=== PATIENT | female | born 1970 | race Caucasian/White ===

== ENCOUNTER 2016-06-23 16:58 | Observation (INO) | payer OTHER ==
[~2016-06-23] VITALS: Ht 160 cm; Wt 74.7 kg
[~2016-06-23 16:58] MED LIST: ABILIFY; ABILIFY10 MG PO; ALDACTONE100 MG PO; APRI1 EACH PO; ATORVASTATIN CA80 MG PO; BACTRIM,SEPT1 TABLET PO; BENTYL20 MG PO; BENZTROPINE ME0.5 MG PO; BENZTROPINE MESY1 MG PO; BUSPAR10 MG PO; BUSPAR15 MG PO; Bentyl PO; Buspar PO; CELEXA10 MG PO; CLONAZEPAM0.5 MG PO; Cogentin PO; EFFEXOR XR150 MG PO; EFFEXOR75 MG PO; Effexor XR PO; FENOFIBRIC ACI135 MG PO; FOLIC ACID1 MG PO; Folvite PO; GABAPENTIN800 MG PO; Habitrol,Nicoderm CQ TD; K-DUR20 MEQ PO; KEPPRA500 MG PO; LITHIUM CARBON300 MG PO; LOMOTIL TABLET1 EACH PO; LORAZEPAM1 MG PO; LUNESTA3 MG PO; Levaquin PO; Lipitor PO; NEURONTIN800 MG PO; NICOTINE PATCH1 EAC2 TD; NYQUIL D COLD295 ML PO; PERPHENAZINE16 MG PO; PERPHENAZINE8 MG PO; PROMETHAZINE HC25 M1 PO; Proventil,Ventolin H IH; RESTORIL30 MG PO; RISPERIDONE1 MG PO; RISPERIDONE3 MG PO; SAPHRIS10 MG SL; SPIRONOLACTONE100 MG PO; TRILAFON8 MG PO; Tamiflu PO; Tricor PO; Trilafon PO; UNISOM50 MG PO; VENLAFAXINE HC150 M1 PO; VENLAFAXINE225 MG PO; ZYPREXA2.5 MG PO; celeXA PO; predniSONE PO
[2016-06-23 17:26] LABS: HEMATOCRIT 33.5 % (36.0-46.0); MCH 35.6 PG (29.0-34.0); MCHC 33.1 G/DL (30.0-36.0); MCV 107.4 FL (83-99); MEAN PLAT.VOLUME 8.4 uM^3 (9.5-12.4); PLATELET COUNT 581 K/uL (156-360); RBC DIS.WIDTH-CV 14.8 % (11.8-14.6); RBC DIS.WIDTH-SD 58.8 % (39-53); RED BLOOD COUNT 3.12 M/uL (3.80-5.20); WHITE BLOOD COUNT 19.2 K/uL (4.1-10.2)
[2016-06-23 17:36] LABS: CHLORIDE 100 mEq/L (99-109); SODIUM 133 mEq/L (136-147)
[2016-06-23 17:39] LABS: GLUCOSE 108 mg/dL (70-99)
[2016-06-23 17:40] LABS: ANION GAP 14 MEQ/L (2-14)
[2016-06-23 17:41] LABS: TOTAL BILIRUBIN 0.2 mg/dL (0.0-1.0)
[2016-06-23 17:42] LABS: ALKALINE PHOSPHATASE 80 IU/L (3-129); GFR ESTIMATE (CALCULATED) > 59 mL/min/
[2016-06-23 17:43] LABS: UREA NITROGEN (BUN) 5 mg/dL (9-23)
[2016-06-23 17:51] LABS: QUANTITATIVE HCG < 4.0 MIU/ML
[2016-06-23 18:14] LABS: ADD MIUA? YES; BILIRUBIN NEGATIVE; BLOOD NEGATIVE; COLOR STRAW ((YELLOW)); GLUCOSE (STRIP) NEGATIVE; KETONES 20; LEUKOCYTES NEGATIVE; NITRITE NEGATIVE; PROTEIN (STRIP) NEGATIVE; SPECIFIC GRAVITY 1.006 (1.000-1.030); UROBILINOGEN 0.2 MG/DL (0.2-1.0)
[2016-06-23 18:27] LABS: BACTERIA RARE /HPF; EPITHELIAL CELLS 1+ /HPF; MUCUS TRACE /LPF; RED BLOOD CELLS 0-5 /HPF (0-5); UCUL ADDED? NO; WHITE BLOOD CELLS 0-5 /HPF (0-5)
[2016-06-23 20:36] LABS: AMYLASE 54 IU/L (1-118)
[2016-06-23 20:44] LABS: DIRECT BILIRUBIN 0.1 mg/dL (0.0-0.3)
[2016-06-23 20:45] LABS: LIPASE 15 U/L (1.0-51.0)
[2016-06-23] MEDS ORDERED: IBUPROFEN800 MG PO (23:03)
[2016-06-24 00:20] VITALS: BP 116/70
[2016-06-24 00:23] VITALS: BP 116/70
[2016-06-24 04:30] VITALS: BP 128/66
[2016-06-24 07:09] LABS: HEMATOCRIT 30.8 % (36.0-46.0); MCH 35.6 PG (29.0-34.0); MCHC 32.5 G/DL (30.0-36.0); MCV 109.6 FL (83-99); MEAN PLAT.VOLUME 8.8 uM^3 (9.5-12.4); PLATELET COUNT 521 K/uL (156-360); RBC DIS.WIDTH-SD 60.7 % (39-53); RED BLOOD COUNT 2.81 M/uL (3.80-5.20)
[2016-06-24 07:11] LABS: AMYLASE 28 IU/L (1-118); LIPASE 14 U/L (1.0-51.0)
[2016-06-24 07:17] LABS: WHITE BLOOD COUNT 11.6 K/uL (4.1-10.2)
[2016-06-24 07:26] VITALS: BP 106/59
[2016-06-24 08:25] LABS: ANION GAP 12 MEQ/L (2-14); CHLORIDE 107 MEQ/L (99-109); GFR ESTIMATE (CALCULATED) > 59 mL/min/; GLUCOSE 109 mg/dL (70-99); POTASSIUM 3.5 MEQ/L (3.7-5.4); UREA NITROGEN (BUN) 3 mg/dL (9-23)
[2016-06-24 08:28] LABS: SODIUM 141 MEQ/L (136-147)
[2016-06-24 11:01] VITALS: BP 102/60
[2016-06-24 13:45] LABS: AMPHETAMINES QUANT VALUE 0 NG/ML; BARBITUATES QUANT VALUE 0 NG/ML; BENZODIAZEPINES QUANT VALUE 0 NG/ML; BENZODIAZEPINES, URINE SCREEN Negative (200 ng/mL); MARIJUANA QUANT VALUE 0 NG/ML; OPIATES QUANTITATIVE VALUE 0 NG/ML; PHENCYCLIDINE QUANT VALUE 0 NG/ML
[2016-06-24] MEDS ORDERED: PROTONIX40 MG PO (16:08)
== END 2016-06-24 18:43 | disposition home or self-care (01) ==
LOC: EME 16:58 → 5WEST 23:11 → EDOF 23:11 → 5WEST 06-24 00:06
PROVIDERS: Physician Assistant Medical
DX: K29.80 Duodenitis without bleeding (principal); E87.6 Hypokalemia; E87.1 Hypo-osmolality and hyponatremia; D64.9 Anemia, unspecified; D47.3 Essential (hemorrhagic) thrombocythemia; F20.9 Schizophrenia, unspecified; F17.200 Nicotine dependence, unspecified, uncomplicated
CPT/HCPCS: 74177; 76856; 80048; 80053; 80306 90; 81003; 82150; 82248; 83605; 83690; 84702; 85027; 87040; 99281; 99285; C9113; G0378; J0696; J2405; J3480; J7030; J7042; J7050

== ENCOUNTER 2016-07-06 16:15 | Inpatient (IN) | payer OTHER ==
[~2016-07-06] VITALS: Ht 160 cm; Wt 96.8 kg
[~2016-07-06 16:15] MED LIST changes: +IBUPROFEN800 MG PO; +PROTONIX40 MG PO
[2016-07-06 17:56] LABS: D-DIMER ELISA 1.06 mg/L FEU (< 0.57)
[2016-07-06 17:59] LABS: EOSINOPHIL (%) 0.5 % (0-5); EOSINOPHIL COUNT 0.1 K/uL (0-0.3); HEMATOCRIT 23.4 % (36.0-46.0); IMMATURE GRANULOCYTE (%) 1.6 % (0.0-0.7); IMMATURE GRANULOCYTE COUNT 0.2 K/uL; INSTRUMENT ABS NEUTROPHIL CT 10.5 K/uL; LYMPHOCYTE COUNT 0.9 K/uL (1.0-2.8); MCH 33.2 PG (29.0-34.0); MCHC 30.3 G/DL (30.0-36.0); MCV 109.3 FL (83-99); MONOCYTE (%) 7.7 % (3-12); NEUTROPHIL (%) 82.7 % (45-76); NEUTROPHIL COUNT 10.5 K/uL (1.8-6.4); NRBC (%) 0.2 /100 WBC (0-0); RBC DIS.WIDTH-CV 16.3 % (11.8-14.6); RBC DIS.WIDTH-SD 65.6 % (39-53); RED BLOOD COUNT 2.14 M/uL (3.80-5.20); WHITE BLOOD COUNT 12.7 K/uL (4.1-10.2)
[2016-07-06 18:11] LABS: CHLORIDE 118 mEq/L (99-109); SODIUM 142 mEq/L (136-147)
[2016-07-06 18:13] LABS: GLUCOSE 62 mg/dL (70-99); TROP-I INTERPRETATION NEGATIVE; TROPONIN-I < 0.01 ng/mL (0.0-0.30)
[2016-07-06 18:14] LABS: ANION GAP 9 MEQ/L (2-14)
[2016-07-06 18:15] LABS: TOTAL BILIRUBIN 0.4 mg/dL (0.0-1.0)
[2016-07-06 18:18] LABS: ALKALINE PHOSPHATASE 72 IU/L (3-129); GFR ESTIMATE (CALCULATED) > 59 mL/min/; UREA NITROGEN (BUN) 4 mg/dL (9-23)
[2016-07-06 18:27] LABS: QUANTITATIVE HCG < 4.0 MIU/ML
[2016-07-06 18:28] LABS: POTASSIUM 2.4 mEq/L (3.7-5.4)
[2016-07-06 18:58] LABS: MEAN PLAT.VOLUME 9.6 uM^3 (9.5-12.4); PLAT.SUFFICIENCY ADEQUATE; PLATELET COUNT 237 K/uL (156-360)
[2016-07-06 19:14] LABS: BASE EXCESS -5.3 mEq/L (-3 to +3); CARBOXY HGB 3.4 % (0-5); COMMENTS - BLOOD GASES C+A+; DEVICE NRBM; FI02 100 %; METHEMOGLOBIN 1.2 % (0-1.5); O2 FLOW 15 L/MIN; PCO2 37 mm Hg (35-45); PO2 83 mm Hg (80-100); SITE RR; TOTAL RESP RATE 28 resp/min; pH 7.34 (7.35-7.45)
[2016-07-06 20:51] VITALS: BP 109/74
[2016-07-06 21:12] VITALS: BP 104/61
[2016-07-06 21:28] LABS: SAMPLE HEMOLYSIS CHECK 0; SAMPLE ICTERIC CHECK 0; SAMPLE LIPEMIA CHECK 0
[2016-07-06 21:34] LABS: HDL CHOLESTEROL 35 MG/DL (Desirable>=50); LDL CHOLESTEROL 67 mg/dL (Desirable<100); NON-HDL CHOLESTEROL 77 mg/dL (Desirable<160); TOTAL CHOLESTEROL 112 mg/dL (Desirable<200); TRIGLYCERIDES 51 MG/DL (Normal: <150)
[2016-07-06 22:30] VITALS: BP 108/66
[2016-07-06 22:32] VITALS: BP 108/66
[2016-07-06 23:00] VITALS: BP 109/57
[2016-07-06 23:30] VITALS: BP 115/60
[2016-07-07] VITALS (24 sets, daily range): BP systolic 66–145; BP diastolic 38–96
[2016-07-07] LABS: METH RESISTANT S AUREUS PCR NEGATIVE (NEGATIVE)
[2016-07-07 00:10] LABS: PROBE CHECK PASS; SPECIMEN PROCESSING CONTROL PASS
[2016-07-07 03:22] LABS: HEMATOCRIT 33.3 % (36.0-46.0); MCH 32.8 PG (29.0-34.0); MCHC 30.9 G/DL (30.0-36.0); MCV 106.1 FL (83-99); MEAN PLAT.VOLUME 9.6 uM^3 (9.5-12.4); NRBC (%) 0.2 /100 WBC (0-0); PLATELET COUNT 270 K/uL (156-360); RBC DIS.WIDTH-CV 18.7 % (11.8-14.6); RED BLOOD COUNT 3.14 M/uL (3.80-5.20); WHITE BLOOD COUNT 17.3 K/uL (4.1-10.2)
[2016-07-07 03:30] LABS: CHLORIDE 110 mEq/L (99-109); SODIUM 137 mEq/L (136-147)
[2016-07-07 03:33] LABS: GLUCOSE 134 mg/dL (70-99); POTASSIUM 4.8 mEq/L (3.7-5.4)
[2016-07-07 03:34] LABS: ANION GAP 11 MEQ/L (2-14)
[2016-07-07 03:36] LABS: GFR ESTIMATE (CALCULATED) > 59 mL/min/; TOTAL BILIRUBIN 0.7 mg/dL (0.0-1.0)
[2016-07-07 03:37] LABS: UREA NITROGEN (BUN) 5 mg/dL (9-23)
[2016-07-07 03:40] LABS: ALKALINE PHOSPHATASE 106 IU/L (3-129)
[2016-07-07 14:06] LABS: ADD MIUA? YES; BILIRUBIN NEGATIVE; BLOOD NEGATIVE; COLOR YELLOW ((YELLOW)); GLUCOSE (STRIP) NEGATIVE; KETONES NEGATIVE; LEUKOCYTES NEGATIVE; NITRITE NEGATIVE; PROTEIN (STRIP) 30; SPECIFIC GRAVITY 1.014 (1.000-1.030); UROBILINOGEN 0.2 MG/DL (0.2-1.0)
[2016-07-07 14:46] LABS: EPITHELIAL CELLS 1+ /HPF; RED BLOOD CELLS 0-5 /HPF (0-5); WHITE BLOOD CELLS 0-5 /HPF (0-5)
[2016-07-07 14:47] LABS: BACTERIA RARE /HPF; MUCUS 1+ /LPF; UCUL ADDED? NO
[2016-07-07 20:11] LABS: BASE EXCESS -3.9 mEq/L (-3 to +3); BICARBONATE 25.7 mEq/L (22-26); CARBOXY HGB 1.3 % (0-5); METHEMOGLOBIN 1.6 % (0-1.5); PCO2 72 mm Hg (35-45); PO2 94 mm Hg (80-100); SITE RR; pH 7.16 (7.35-7.45)
[2016-07-07 20:12] LABS: COMMENTS - BLOOD GASES A+C+; DEVICE VENT; FI02 100 %; MECHANICAL RATE 12 resp/min; MODE AC; PEEP 8 CM/H20; TIDAL VOLUME 400 ML
[2016-07-08] VITALS (7 sets, daily range): BP systolic 88–127; BP diastolic 52–78
[2016-07-08 02:14] LABS: BASE EXCESS -4.2 mEq/L (-3 to +3); BICARBONATE 21.6 mEq/L (22-26); CARBOXY HGB 1.5 % (0-5); COMMENTS - BLOOD GASES C+; DEVICE VENT; FI02 80 %; MECHANICAL RATE 20 resp/min; METHEMOGLOBIN 1.9 % (0-1.5); MODE A/C VC+; PCO2 42 mm Hg (35-45); PO2 216 mm Hg (80-100); SITE RR ALINE; TOTAL RESP RATE 27 resp/min; pH 7.32 (7.35-7.45)
[2016-07-08 02:15] LABS: INSPIRATION TIME 0.8 seconds; PEEP 8 CM/H20; TIDAL VOLUME 400 ML
[2016-07-08 05:49] LABS: EOSINOPHIL (%) 0.6 % (0-5); EOSINOPHIL COUNT 0.1 K/uL (0-0.3); HEMATOCRIT 29.8 % (36.0-46.0); IMMATURE GRANULOCYTE (%) 1.5 % (0.0-0.7); IMMATURE GRANULOCYTE COUNT 0.2 K/uL; INSTRUMENT ABS NEUTROPHIL CT 9.2 K/uL; LYMPHOCYTE COUNT 1.9 K/uL (1.0-2.8); MCH 32.1 PG (29.0-34.0); MCHC 30.9 G/DL (30.0-36.0); MCV 103.8 FL (83-99); MEAN PLAT.VOLUME 9.8 uM^3 (9.5-12.4); MONOCYTE (%) 9.4 % (3-12); MONOCYTE COUNT 1.2 K/uL (0-0.8); NEUTROPHIL (%) 73.2 % (45-76); NEUTROPHIL COUNT 9.2 K/uL (1.8-6.4); NRBC (%) 0.5 /100 WBC (0-0); PLATELET COUNT 282 K/uL (156-360); RBC DIS.WIDTH-CV 18.6 % (11.8-14.6); RBC DIS.WIDTH-SD 72.3 % (39-53); RED BLOOD COUNT 2.87 M/uL (3.80-5.20); WHITE BLOOD COUNT 12.5 K/uL (4.1-10.2)
[2016-07-08 06:19] LABS: ALKALINE PHOSPHATASE 104 IU/L (3-129); ANION GAP 8 MEQ/L (2-14); CHLORIDE 104 MEQ/L (99-109); GFR ESTIMATE (CALCULATED) > 59 mL/min/; GLUCOSE 106 mg/dL (70-99); MAGNESIUM 1.4 mg/dl (1.3-2.7); POTASSIUM 4.5 MEQ/L (3.7-5.4); SAMPLE HEMOLYSIS CHECK 0; SAMPLE ICTERIC CHECK 0; SAMPLE LIPEMIA CHECK 0; SODIUM 134 MEQ/L (136-147); TOTAL BILIRUBIN 1.2 MG/DL (0.0-1.0); UREA NITROGEN (BUN) 7 mg/dL (9-23)
[2016-07-09 01:00] VITALS: BP 103/69
[2016-07-09 04:00] VITALS: BP 106/71
[2016-07-09 05:58] LABS: EOSINOPHIL (%) 2.7 % (0-5); EOSINOPHIL COUNT 0.3 K/uL (0-0.3); HEMATOCRIT 27.9 % (36.0-46.0); IMMATURE GRANULOCYTE (%) 0.9 % (0.0-0.7); IMMATURE GRANULOCYTE COUNT 0.1 K/uL; INSTRUMENT ABS NEUTROPHIL CT 6.7 K/uL; LYMPHOCYTE COUNT 1.9 K/uL (1.0-2.8); MCH 31.6 PG (29.0-34.0); MCHC 30.5 G/DL (30.0-36.0); MCV 103.7 FL (83-99); MEAN PLAT.VOLUME 9.6 uM^3 (9.5-12.4); MONOCYTE (%) 9.1 % (3-12); MONOCYTE COUNT 0.9 K/uL (0-0.8); NEUTROPHIL (%) 67.8 % (45-76); NEUTROPHIL COUNT 6.7 K/uL (1.8-6.4); PLATELET COUNT 272 K/uL (156-360); RBC DIS.WIDTH-CV 17.8 % (11.8-14.6); RBC DIS.WIDTH-SD 67.7 % (39-53); RED BLOOD COUNT 2.69 M/uL (3.80-5.20); WHITE BLOOD COUNT 9.8 K/uL (4.1-10.2)
[2016-07-09 06:41] LABS: ALKALINE PHOSPHATASE 100 IU/L (3-129); ANION GAP 8 MEQ/L (2-14); CHLORIDE 103 MEQ/L (99-109); GFR ESTIMATE (CALCULATED) > 59 mL/min/; GLUCOSE 96 mg/dL (70-99); MAGNESIUM 1.5 mg/dl (1.3-2.7); POTASSIUM 3.7 MEQ/L (3.7-5.4); SAMPLE HEMOLYSIS CHECK 0; SAMPLE ICTERIC CHECK 0; SAMPLE LIPEMIA CHECK 0; SODIUM 137 MEQ/L (136-147); UREA NITROGEN (BUN) 6 mg/dL (9-23)
[2016-07-09 06:49] LABS: TOTAL BILIRUBIN 0.7 MG/DL (0.0-1.0)
[2016-07-09 12:00] VITALS: BP 87/46
[2016-07-09 16:03] LABS: M. pneumoniae Ab, IgG 2.15 (<=0.90)
[2016-07-09 20:00] VITALS: BP 115/70
[2016-07-10] VITALS (8 sets, daily range): BP systolic 84–109; BP diastolic 54–67
[2016-07-10 05:46] LABS: BASOPHIL COUNT 0.1 K/uL (0-0.1); EOSINOPHIL (%) 4.1 % (0-5); EOSINOPHIL COUNT 0.4 K/uL (0-0.3); HEMATOCRIT 28.7 % (36.0-46.0); IMMATURE GRANULOCYTE (%) 1.2 % (0.0-0.7); IMMATURE GRANULOCYTE COUNT 0.1 K/uL; INSTRUMENT ABS NEUTROPHIL CT 6.2 K/uL; LYMPHOCYTE COUNT 2.1 K/uL (1.0-2.8); MCH 31.7 PG (29.0-34.0); MCV 102.1 FL (83-99); MEAN PLAT.VOLUME 9.5 uM^3 (9.5-12.4); MONOCYTE (%) 9.9 % (3-12); NEUTROPHIL (%) 63.2 % (45-76); NEUTROPHIL COUNT 6.2 K/uL (1.8-6.4); PLATELET COUNT 307 K/uL (156-360); RBC DIS.WIDTH-CV 17.2 % (11.8-14.6); RBC DIS.WIDTH-SD 65.7 % (39-53); RED BLOOD COUNT 2.81 M/uL (3.80-5.20); WHITE BLOOD COUNT 9.9 K/uL (4.1-10.2)
[2016-07-10 06:13] LABS: ANION GAP 8 MEQ/L (2-14); CHLORIDE 101 MEQ/L (99-109); GFR ESTIMATE (CALCULATED) > 59 mL/min/; GLUCOSE 108 mg/dL (70-99); POTASSIUM 3.7 MEQ/L (3.7-5.4); SAMPLE HEMOLYSIS CHECK 0; SAMPLE ICTERIC CHECK 0; SAMPLE LIPEMIA CHECK 0; SODIUM 138 MEQ/L (136-147); UREA NITROGEN (BUN) 6 mg/dL (9-23)
[2016-07-11 05:51] LABS: BASOPHIL COUNT 0.1 K/uL (0-0.1); EOSINOPHIL (%) 3.8 % (0-5); EOSINOPHIL COUNT 0.4 K/uL (0-0.3); HEMATOCRIT 29.9 % (36.0-46.0); IMMATURE GRANULOCYTE COUNT 0.1 K/uL; INSTRUMENT ABS NEUTROPHIL CT 8.1 K/uL; LYMPHOCYTE COUNT 1.5 K/uL (1.0-2.8); MCH 31.9 PG (29.0-34.0); MCHC 31.4 G/DL (30.0-36.0); MCV 101.4 FL (83-99); MEAN PLAT.VOLUME 9.7 uM^3 (9.5-12.4); MONOCYTE (%) 8.9 % (3-12); NEUTROPHIL (%) 72.2 % (45-76); NEUTROPHIL COUNT 8.1 K/uL (1.8-6.4); PLATELET COUNT 313 K/uL (156-360); RBC DIS.WIDTH-CV 16.9 % (11.8-14.6); RBC DIS.WIDTH-SD 62.4 % (39-53); RED BLOOD COUNT 2.95 M/uL (3.80-5.20); WHITE BLOOD COUNT 11.2 K/uL (4.1-10.2)
[2016-07-11 06:33] LABS: ANION GAP 8 MEQ/L (2-14); CHLORIDE 95 MEQ/L (99-109); GFR ESTIMATE (CALCULATED) > 59 mL/min/; GLUCOSE 119 mg/dL (70-99); MAGNESIUM 1.3 mg/dl (1.3-2.7); POTASSIUM 3.4 MEQ/L (3.7-5.4); SAMPLE HEMOLYSIS CHECK 0; SAMPLE ICTERIC CHECK 0; SAMPLE LIPEMIA CHECK 0; SODIUM 138 MEQ/L (136-147); UREA NITROGEN (BUN) 7 mg/dL (9-23)
[2016-07-11 16:10] VITALS: BP 88/46
[2016-07-11 20:00] VITALS: BP 155/86
[2016-07-12 13:28] LABS: HEMATOCRIT 29.4 % (36.0-46.0); MCH 31.2 PG (29.0-34.0); MCHC 30.3 G/DL (30.0-36.0); MCV 103.2 FL (83-99); MEAN PLAT.VOLUME 9.8 uM^3 (9.5-12.4); PLATELET COUNT 335 K/uL (156-360); RBC DIS.WIDTH-CV 17.1 % (11.8-14.6); RBC DIS.WIDTH-SD 64.6 % (39-53); RED BLOOD COUNT 2.85 M/uL (3.80-5.20); WHITE BLOOD COUNT 11.2 K/uL (4.1-10.2)
[2016-07-12 14:00] VITALS: BP 132/60
[2016-07-12 14:10] LABS: ANION GAP 9 MEQ/L (2-14); CHLORIDE 96 MEQ/L (99-109); GFR ESTIMATE (CALCULATED) > 59 mL/min/; GLUCOSE 120 mg/dL (70-99); POTASSIUM 3.5 MEQ/L (3.7-5.4); SAMPLE HEMOLYSIS CHECK 0; SAMPLE ICTERIC CHECK 0; SAMPLE LIPEMIA CHECK 0; SODIUM 141 MEQ/L (136-147); UREA NITROGEN (BUN) 9 mg/dL (9-23)
[2016-07-12 14:16] LABS: MAGNESIUM 1.7 mg/dl (1.3-2.7)
[2016-07-12 21:00] VITALS: BP 95/61
[2016-07-13 06:03] LABS: HEMATOCRIT 30.4 % (36.0-46.0); MCH 31.3 PG (29.0-34.0); MCHC 30.3 G/DL (30.0-36.0); MCV 103.4 FL (83-99); MEAN PLAT.VOLUME 9.9 uM^3 (9.5-12.4); PLATELET COUNT 415 K/uL (156-360); RBC DIS.WIDTH-CV 17.3 % (11.8-14.6); RBC DIS.WIDTH-SD 65.4 % (39-53); RED BLOOD COUNT 2.94 M/uL (3.80-5.20); WHITE BLOOD COUNT 11.5 K/uL (4.1-10.2)
[2016-07-13 06:22] LABS: ANION GAP 8 MEQ/L (2-14); CHLORIDE 94 MEQ/L (99-109); GFR ESTIMATE (CALCULATED) > 59 mL/min/; GLUCOSE 113 mg/dL (70-99); MAGNESIUM 2.1 mg/dl (1.3-2.7); SAMPLE HEMOLYSIS CHECK 0; SAMPLE ICTERIC CHECK 0; SAMPLE LIPEMIA CHECK 0; SODIUM 141 MEQ/L (136-147); UREA NITROGEN (BUN) 9 mg/dL (9-23)
[2016-07-13 11:00] VITALS: BP 101/64
[2016-07-13 14:00] VITALS: BP 101/64
[2016-07-14 05:59] LABS: BASOPHIL COUNT 0.1 K/uL (0-0.1); EOSINOPHIL (%) 0 % (0-5); HEMATOCRIT 31.6 % (36.0-46.0); IMMATURE GRANULOCYTE (%) 1.8 % (0.0-0.7); IMMATURE GRANULOCYTE COUNT 0.2 K/uL; INSTRUMENT ABS NEUTROPHIL CT 9.1 K/uL; LYMPHOCYTE COUNT 0.9 K/uL (1.0-2.8); MCH 31.1 PG (29.0-34.0); MCHC 30.1 G/DL (30.0-36.0); MCV 103.6 FL (83-99); MONOCYTE (%) 2.5 % (3-12); MONOCYTE COUNT 0.3 K/uL (0-0.8); NEUTROPHIL (%) 86.4 % (45-76); NEUTROPHIL COUNT 9.1 K/uL (1.8-6.4); NRBC (%) 0.2 /100 WBC (0-0); PLATELET COUNT 476 K/uL (156-360); RBC DIS.WIDTH-SD 64.1 % (39-53); RED BLOOD COUNT 3.05 M/uL (3.80-5.20); WHITE BLOOD COUNT 10.5 K/uL (4.1-10.2)
[2016-07-14 06:28] LABS: ANION GAP 8 MEQ/L (2-14); CHLORIDE 98 MEQ/L (99-109); GFR ESTIMATE (CALCULATED) > 59 mL/min/; GLUCOSE 125 mg/dL (70-99); POTASSIUM 4.6 MEQ/L (3.7-5.4); SAMPLE HEMOLYSIS CHECK 0; SAMPLE ICTERIC CHECK 0; SAMPLE LIPEMIA CHECK 0; SODIUM 142 MEQ/L (136-147); UREA NITROGEN (BUN) 17 mg/dL (9-23)
[2016-07-14 08:21] LABS: BASE EXCESS 9.5 mEq/L (-3 to +3); BICARBONATE 36.7 mEq/L (22-26); CARBOXY HGB 1.4 % (0-5); METHEMOGLOBIN 1.7 % (0-1.5); PCO2 65 mm Hg (35-45); PO2 77 mm Hg (80-100); pH 7.36 (7.35-7.45)
[2016-07-14 08:22] LABS: COMMENTS - BLOOD GASES C+; DEVICE 980; FI02 65 %; INSPIRATION TIME 0.8 seconds; MECHANICAL RATE 16 resp/min; MODE A/C; PEEP 15 CM/H20; SITE ALINE; TIDAL VOLUME 450 ML; TOTAL RESP RATE 17 resp/min
[2016-07-14 16:00] VITALS: BP 103/63
[2016-07-14 21:25] LABS: INFLUENZA A VIRAL ANTIGEN NEGATIVE; INFLUENZA B VIRAL ANTIGEN NEGATIVE
[2016-07-15 06:08] LABS: BASOPHIL COUNT 0.1 K/uL (0-0.1); EOSINOPHIL (%) 0.2 % (0-5); HEMATOCRIT 31.4 % (36.0-46.0); IMMATURE GRANULOCYTE (%) 1.6 % (0.0-0.7); IMMATURE GRANULOCYTE COUNT 0.2 K/uL; INSTRUMENT ABS NEUTROPHIL CT 9.5 K/uL; LYMPHOCYTE COUNT 1.8 K/uL (1.0-2.8); MCH 31.1 PG (29.0-34.0); MCHC 29.9 G/DL (30.0-36.0); MEAN PLAT.VOLUME 10.1 uM^3 (9.5-12.4); MONOCYTE (%) 5.4 % (3-12); MONOCYTE COUNT 0.7 K/uL (0-0.8); NEUTROPHIL (%) 77.5 % (45-76); NEUTROPHIL COUNT 9.5 K/uL (1.8-6.4); PLATELET COUNT 526 K/uL (156-360); RBC DIS.WIDTH-CV 17.3 % (11.8-14.6); RBC DIS.WIDTH-SD 67.1 % (39-53); RED BLOOD COUNT 3.02 M/uL (3.80-5.20); WHITE BLOOD COUNT 12.3 K/uL (4.1-10.2)
[2016-07-15 06:21] LABS: ANION GAP 9 MEQ/L (2-14); CHLORIDE 100 MEQ/L (99-109); GFR ESTIMATE (CALCULATED) > 59 mL/min/; GLUCOSE 130 mg/dL (70-99); MAGNESIUM 1.9 mg/dl (1.3-2.7); POTASSIUM 5.1 MEQ/L (3.7-5.4); SAMPLE HEMOLYSIS CHECK 0; SAMPLE ICTERIC CHECK 0; SAMPLE LIPEMIA CHECK 0; SODIUM 141 MEQ/L (136-147); UREA NITROGEN (BUN) 18 mg/dL (9-23)
[2016-07-15 08:00] VITALS: BP 132/75
[2016-07-15 12:21] LABS: POINT-OF-CARE METER ID UU13113803
[2016-07-15 17:58] LABS: POINT-OF-CARE METER ID UU13113803
[2016-07-16 00:37] LABS: POINT-OF-CARE METER ID UU13113803; POINT-OF-CARE USER ID LABHNS84
[2016-07-16 05:33] LABS: POINT-OF-CARE METER ID UU13113803; POINT-OF-CARE USER ID LABHNS84
[2016-07-16 06:42] LABS: BASOPHIL COUNT 0.1 K/uL (0-0.1); EOSINOPHIL (%) 0.1 % (0-5); HEMATOCRIT 32.7 % (36.0-46.0); IMMATURE GRANULOCYTE (%) 1.5 % (0.0-0.7); IMMATURE GRANULOCYTE COUNT 0.2 K/uL; INSTRUMENT ABS NEUTROPHIL CT 10.1 K/uL; LYMPHOCYTE COUNT 1.5 K/uL (1.0-2.8); MCH 31.7 PG (29.0-34.0); MCHC 30.9 G/DL (30.0-36.0); MCV 102.5 FL (83-99); MEAN PLAT.VOLUME 10.1 uM^3 (9.5-12.4); MONOCYTE (%) 5.6 % (3-12); MONOCYTE COUNT 0.7 K/uL (0-0.8); NEUTROPHIL (%) 80.7 % (45-76); NEUTROPHIL COUNT 10.1 K/uL (1.8-6.4); PLATELET COUNT 653 K/uL (156-360); RBC DIS.WIDTH-CV 17.2 % (11.8-14.6); RBC DIS.WIDTH-SD 65.1 % (39-53); RED BLOOD COUNT 3.19 M/uL (3.80-5.20); WHITE BLOOD COUNT 12.5 K/uL (4.1-10.2)
[2016-07-16 07:06] LABS: ANION GAP 12 MEQ/L (2-14); CHLORIDE 95 MEQ/L (99-109); GFR ESTIMATE (CALCULATED) > 59 mL/min/; GLUCOSE 120 mg/dL (70-99); MAGNESIUM 2.1 mg/dl (1.3-2.7); POTASSIUM 4.9 MEQ/L (3.7-5.4); SAMPLE HEMOLYSIS CHECK 0; SAMPLE ICTERIC CHECK 0; SAMPLE LIPEMIA CHECK 0; SODIUM 141 MEQ/L (136-147); UREA NITROGEN (BUN) 24 mg/dL (9-23)
[2016-07-16 07:50] VITALS: BP 122/66
[2016-07-16 12:26] LABS: POINT-OF-CARE METER ID UU13113803
[2016-07-16 13:23] LABS: ALKALINE PHOSPHATASE 91 IU/L (3-129); DIRECT BILIRUBIN 0.1 mg/dL (0.0-0.3)
[2016-07-16 13:33] LABS: TOTAL BILIRUBIN 0.4 MG/DL (0.0-1.0)
[2016-07-16 16:00] VITALS: BP 85/46
[2016-07-17] VITALS (14 sets, daily range): BP systolic 84–121; BP diastolic 55–81
[2016-07-17 00:32] LABS: POINT-OF-CARE METER ID UU13113803; POINT-OF-CARE USER ID LABHNS84
[2016-07-17 05:28] LABS: POINT-OF-CARE METER ID UU13113803; POINT-OF-CARE USER ID LABHNS84
[2016-07-17 06:21] LABS: ANION GAP 11 MEQ/L (2-14); CHLORIDE 97 MEQ/L (99-109); GFR ESTIMATE (CALCULATED) > 59 mL/min/; GLUCOSE 98 mg/dL (70-99); MAGNESIUM 2.1 mg/dl (1.3-2.7); POTASSIUM 3.9 MEQ/L (3.7-5.4); SAMPLE HEMOLYSIS CHECK 0; SAMPLE ICTERIC CHECK 0; SAMPLE LIPEMIA CHECK 0; SODIUM 139 MEQ/L (136-147); UREA NITROGEN (BUN) 31 mg/dL (9-23)
[2016-07-17 06:29] LABS: BASOPHIL COUNT 0.1 K/uL (0-0.1); EOSINOPHIL (%) 0.2 % (0-5); HEMATOCRIT 36.4 % (36.0-46.0); IMMATURE GRANULOCYTE (%) 1.4 % (0.0-0.7); IMMATURE GRANULOCYTE COUNT 0.2 K/uL; INSTRUMENT ABS NEUTROPHIL CT 12.1 K/uL; MCH 30.8 PG (29.0-34.0); MCHC 30.2 G/DL (30.0-36.0); MEAN PLAT.VOLUME 9.8 uM^3 (9.5-12.4); MONOCYTE (%) 8.9 % (3-12); MONOCYTE COUNT 1.5 K/uL (0-0.8); NEUTROPHIL (%) 71.4 % (45-76); NEUTROPHIL COUNT 12.1 K/uL (1.8-6.4); PLATELET COUNT 756 K/uL (156-360); RBC DIS.WIDTH-SD 63.8 % (39-53); RED BLOOD COUNT 3.57 M/uL (3.80-5.20)
[2016-07-17 12:11] LABS: POINT-OF-CARE METER ID UU13113803
[2016-07-17 12:46] LABS: BASE EXCESS 5.4 mEq/L (-3 to +3); BICARBONATE 32.2 mEq/L (22-26); CARBOXY HGB 1.7 % (0-5); COMMENTS - BLOOD GASES C+; DEVICE NRBM; FI02 100 %; METHEMOGLOBIN 1.6 % (0-1.5); O2 FLOW 15 L/MIN; PCO2 57 mm Hg (35-45); PO2 84 mm Hg (80-100); SITE A LINE; TOTAL RESP RATE 28 resp/min; pH 7.36 (7.35-7.45)
[2016-07-17 18:05] LABS: POINT-OF-CARE METER ID UU13113803
[2016-07-17 22:15] LABS: POINT-OF-CARE METER ID UU13113803; POINT-OF-CARE USER ID LABHNS84
[2016-07-18] VITALS (15 sets, daily range): BP systolic 95–122; BP diastolic 46–87
[2016-07-18 05:50] LABS: BASOPHIL COUNT 0.1 K/uL (0-0.1); EOSINOPHIL (%) 0.1 % (0-5); IMMATURE GRANULOCYTE (%) 1.4 % (0.0-0.7); IMMATURE GRANULOCYTE COUNT 0.3 K/uL; INSTRUMENT ABS NEUTROPHIL CT 15.4 K/uL; LYMPHOCYTE COUNT 2.7 K/uL (1.0-2.8); MCHC 31.4 G/DL (30.0-36.0); MCV 98.9 FL (83-99); MEAN PLAT.VOLUME 9.7 uM^3 (9.5-12.4); MONOCYTE (%) 5.3 % (3-12); NEUTROPHIL (%) 79.1 % (45-76); NEUTROPHIL COUNT 15.4 K/uL (1.8-6.4); PLATELET COUNT 801 K/uL (156-360); RED BLOOD COUNT 3.74 M/uL (3.80-5.20); WHITE BLOOD COUNT 19.5 K/uL (4.1-10.2)
[2016-07-18 06:18] LABS: ANION GAP 11 MEQ/L (2-14); CHLORIDE 97 MEQ/L (99-109); GFR ESTIMATE (CALCULATED) > 59 mL/min/; GLUCOSE 104 mg/dL (70-99); MAGNESIUM 1.8 mg/dl (1.3-2.7); POTASSIUM 4.4 MEQ/L (3.7-5.4); SAMPLE HEMOLYSIS CHECK 0; SAMPLE ICTERIC CHECK 0; SAMPLE LIPEMIA CHECK 0; SODIUM 137 MEQ/L (136-147); UREA NITROGEN (BUN) 26 mg/dL (9-23)
[2016-07-19] VITALS (8 sets, daily range): BP systolic 94–119; BP diastolic 55–83
[2016-07-19 04:36] LABS: POINT-OF-CARE METER ID UU14174217
[2016-07-19 05:50] LABS: BASOPHIL COUNT 0.1 K/uL (0-0.1); EOSINOPHIL (%) 0.8 % (0-5); EOSINOPHIL COUNT 0.1 K/uL (0-0.3); HEMATOCRIT 38.6 % (36.0-46.0); IMMATURE GRANULOCYTE (%) 1.7 % (0.0-0.7); IMMATURE GRANULOCYTE COUNT 0.3 K/uL; INSTRUMENT ABS NEUTROPHIL CT 10.9 K/uL; MCH 31.1 PG (29.0-34.0); MCHC 32.6 G/DL (30.0-36.0); MCV 95.3 FL (83-99); MEAN PLAT.VOLUME 9.4 uM^3 (9.5-12.4); MONOCYTE (%) 6.2 % (3-12); NEUTROPHIL (%) 66.4 % (45-76); NEUTROPHIL COUNT 10.9 K/uL (1.8-6.4); PLATELET COUNT 926 K/uL (156-360); RBC DIS.WIDTH-CV 16.9 % (11.8-14.6); RBC DIS.WIDTH-SD 59.6 % (39-53); RED BLOOD COUNT 4.05 M/uL (3.80-5.20); WHITE BLOOD COUNT 16.5 K/uL (4.1-10.2)
[2016-07-19 06:16] LABS: ANION GAP 12 MEQ/L (2-14); CHLORIDE 93 MEQ/L (99-109); GFR ESTIMATE (CALCULATED) > 59 mL/min/; GLUCOSE 102 mg/dL (70-99); POTASSIUM 3.9 MEQ/L (3.7-5.4); SAMPLE HEMOLYSIS CHECK 0; SAMPLE ICTERIC CHECK 0; SAMPLE LIPEMIA CHECK 0; SODIUM 135 MEQ/L (136-147); UREA NITROGEN (BUN) 21 mg/dL (9-23)
[2016-07-20] VITALS (9 sets, daily range): BP systolic 79–117; BP diastolic 36–82
[2016-07-20 05:56] LABS: BASOPHIL COUNT 0.1 K/uL (0-0.1); EOSINOPHIL (%) 0.5 % (0-5); EOSINOPHIL COUNT 0.1 K/uL (0-0.3); HEMATOCRIT 38.9 % (36.0-46.0); IMMATURE GRANULOCYTE (%) 1.2 % (0.0-0.7); IMMATURE GRANULOCYTE COUNT 0.2 K/uL; INSTRUMENT ABS NEUTROPHIL CT 10.7 K/uL; LYMPHOCYTE COUNT 4.7 K/uL (1.0-2.8); MCH 30.3 PG (29.0-34.0); MCHC 31.4 G/DL (30.0-36.0); MCV 96.8 FL (83-99); MEAN PLAT.VOLUME 9.5 uM^3 (9.5-12.4); MONOCYTE (%) 6.3 % (3-12); MONOCYTE COUNT 1.1 K/uL (0-0.8); NEUTROPHIL (%) 63.5 % (45-76); NEUTROPHIL COUNT 10.7 K/uL (1.8-6.4); PLATELET COUNT 940 K/uL (156-360); RBC DIS.WIDTH-CV 16.9 % (11.8-14.6); RBC DIS.WIDTH-SD 60.1 % (39-53); RED BLOOD COUNT 4.02 M/uL (3.80-5.20); WHITE BLOOD COUNT 16.8 K/uL (4.1-10.2)
[2016-07-20 06:27] LABS: ANION GAP 11 MEQ/L (2-14); CHLORIDE 96 MEQ/L (99-109); GFR ESTIMATE (CALCULATED) > 59 mL/min/; GLUCOSE 88 mg/dL (70-99); MAGNESIUM 1.7 mg/dl (1.3-2.7); SAMPLE HEMOLYSIS CHECK 0; SAMPLE ICTERIC CHECK 0; SAMPLE LIPEMIA CHECK 0; SODIUM 136 MEQ/L (136-147); UREA NITROGEN (BUN) 13 mg/dL (9-23)
[2016-07-21 06:26] LABS: BASOPHIL COUNT 0.1 K/uL (0-0.1); EOSINOPHIL COUNT 0.2 K/uL (0-0.3); HEMATOCRIT 38.5 % (36.0-46.0); IMMATURE GRANULOCYTE (%) 1.1 % (0.0-0.7); IMMATURE GRANULOCYTE COUNT 0.2 K/uL; MCH 30.7 PG (29.0-34.0); MCHC 31.4 G/DL (30.0-36.0); MCV 97.7 FL (83-99); MEAN PLAT.VOLUME 9.4 uM^3 (9.5-12.4); MONOCYTE (%) 6.3 % (3-12); MONOCYTE COUNT 1.2 K/uL (0-0.8); NEUTROPHIL (%) 60.7 % (45-76); PLATELET COUNT 854 K/uL (156-360); RBC DIS.WIDTH-CV 16.9 % (11.8-14.6); RBC DIS.WIDTH-SD 61.6 % (39-53); RED BLOOD COUNT 3.94 M/uL (3.80-5.20); WHITE BLOOD COUNT 19.8 K/uL (4.1-10.2)
[2016-07-21 06:50] LABS: ANION GAP 10 MEQ/L (2-14); CHLORIDE 100 MEQ/L (99-109); GFR ESTIMATE (CALCULATED) > 59 mL/min/; GLUCOSE 86 mg/dL (70-99); MAGNESIUM 1.6 mg/dl (1.3-2.7); POTASSIUM 4.1 MEQ/L (3.7-5.4); SAMPLE HEMOLYSIS CHECK 0; SAMPLE ICTERIC CHECK 0; SAMPLE LIPEMIA CHECK 0; SODIUM 136 MEQ/L (136-147); UREA NITROGEN (BUN) 8 mg/dL (9-23)
[2016-07-21 08:19] VITALS: BP 103/65
[2016-07-21 11:16] VITALS: BP 120/78
[2016-07-21 16:05] VITALS: BP 110/75
[2016-07-21 20:19] VITALS: BP 123/71
[2016-07-22 00:08] VITALS: BP 128/81
[2016-07-22 04:52] VITALS: BP 108/73
[2016-07-22 07:20] LABS: BASOPHIL COUNT 0.1 K/uL (0-0.1); EOSINOPHIL (%) 1.3 % (0-5); EOSINOPHIL COUNT 0.2 K/uL (0-0.3); IMMATURE GRANULOCYTE (%) 1.1 % (0.0-0.7); IMMATURE GRANULOCYTE COUNT 0.2 K/uL; INSTRUMENT ABS NEUTROPHIL CT 10.3 K/uL; LYMPHOCYTE COUNT 6.2 K/uL (1.0-2.8); MCH 30.7 PG (29.0-34.0); MCHC 32.1 G/DL (30.0-36.0); MCV 95.7 FL (83-99); MEAN PLAT.VOLUME 9.4 uM^3 (9.5-12.4); MONOCYTE (%) 6.1 % (3-12); MONOCYTE COUNT 1.1 K/uL (0-0.8); NEUTROPHIL (%) 56.9 % (45-76); NEUTROPHIL COUNT 10.3 K/uL (1.8-6.4); PLATELET COUNT 756 K/uL (156-360); RBC DIS.WIDTH-CV 16.6 % (11.8-14.6); RBC DIS.WIDTH-SD 59.2 % (39-53); RED BLOOD COUNT 3.97 M/uL (3.80-5.20); WHITE BLOOD COUNT 18.1 K/uL (4.1-10.2)
[2016-07-22 07:35] VITALS: BP 124/80
[2016-07-22 07:35] LABS: ANION GAP 11 MEQ/L (2-14); CHLORIDE 101 MEQ/L (99-109); GFR ESTIMATE (CALCULATED) > 59 mL/min/; GLUCOSE 77 mg/dL (70-99); MAGNESIUM 1.6 mg/dl (1.3-2.7); POTASSIUM 3.7 MEQ/L (3.7-5.4); SAMPLE HEMOLYSIS CHECK 0; SAMPLE ICTERIC CHECK 0; SAMPLE LIPEMIA CHECK 0; SODIUM 139 MEQ/L (136-147); UREA NITROGEN (BUN) 5 mg/dL (9-23)
[2016-07-22 11:00] VITALS: BP 129/80
[2016-07-22 15:11] VITALS: BP 109/70
[2016-07-22 19:31] VITALS: BP 122/75
[2016-07-23] VITALS: BP 112/68
[2016-07-23 07:29] VITALS: BP 121/74
[2016-07-23 08:41] LABS: BASOPHIL COUNT 0.2 K/uL (0-0.1); EOSINOPHIL (%) 4.7 % (0-5); EOSINOPHIL COUNT 0.7 K/uL (0-0.3); HEMATOCRIT 42.8 % (36.0-46.0); IMMATURE GRANULOCYTE COUNT 0.3 K/uL; INSTRUMENT ABS NEUTROPHIL CT 7.5 K/uL; MCH 30.5 PG (29.0-34.0); MCHC 31.5 G/DL (30.0-36.0); MCV 96.8 FL (83-99); MEAN PLAT.VOLUME 9.8 uM^3 (9.5-12.4); MONOCYTE (%) 7.6 % (3-12); MONOCYTE COUNT 1.1 K/uL (0-0.8); NEUTROPHIL (%) 50.4 % (45-76); NEUTROPHIL COUNT 7.5 K/uL (1.8-6.4); PLATELET COUNT 781 K/uL (156-360); RBC DIS.WIDTH-CV 16.9 % (11.8-14.6); RBC DIS.WIDTH-SD 60.8 % (39-53); RED BLOOD COUNT 4.42 M/uL (3.80-5.20); WHITE BLOOD COUNT 14.9 K/uL (4.1-10.2)
[2016-07-23 08:43] LABS: ANION GAP 11 MEQ/L (2-14); CHLORIDE 98 MEQ/L (99-109); GFR ESTIMATE (CALCULATED) > 59 mL/min/; GLUCOSE 86 mg/dL (70-99); MAGNESIUM 1.6 mg/dl (1.3-2.7); POTASSIUM 2.8 MEQ/L (3.7-5.4); SAMPLE HEMOLYSIS CHECK 0; SAMPLE ICTERIC CHECK 0; SAMPLE LIPEMIA CHECK 0; SODIUM 137 MEQ/L (136-147); UREA NITROGEN (BUN) 4 mg/dL (9-23)
[2016-07-23 16:00] VITALS: BP 113/66
[2016-07-24 00:12] VITALS: BP 108/65
[2016-07-24 07:43] LABS: ANION GAP 11 MEQ/L (2-14); CHLORIDE 99 MEQ/L (99-109); GFR ESTIMATE (CALCULATED) > 59 mL/min/; GLUCOSE 78 mg/dL (70-99); MAGNESIUM 1.7 mg/dl (1.3-2.7); SAMPLE HEMOLYSIS CHECK 0; SAMPLE ICTERIC CHECK 0; SAMPLE LIPEMIA CHECK 0; SODIUM 137 MEQ/L (136-147); UREA NITROGEN (BUN) 7 mg/dL (9-23)
[2016-07-24 07:48] LABS: POTASSIUM 4.4 MEQ/L (3.7-5.4)
[2016-07-24 08:04] LABS: HEMATOCRIT 38.6 % (36.0-46.0); MCH 30.6 PG (29.0-34.0); MCHC 31.3 G/DL (30.0-36.0); MCV 97.5 FL (83-99); MEAN PLAT.VOLUME 9.4 uM^3 (9.5-12.4); PLATELET COUNT 654 K/uL (156-360); RBC DIS.WIDTH-CV 17.1 % (11.8-14.6); RBC DIS.WIDTH-SD 61.4 % (39-53); RED BLOOD COUNT 3.96 M/uL (3.80-5.20)
[2016-07-24 08:28] VITALS: BP 103/64
[2016-07-24 08:49] LABS: ABS NEUTROPHIL COUNT 14.2; ANISOCYTOSIS 1+; ATYPICAL LYMPHOCYTE 0.4 %; BASOPHILS 0.5 %; EOSINOPHIL ABS CT 0.1; EOSINOPHILS 0.5 % (0-5.0); INSTRUMENT ABS NEUTROPHIL CT 13.1 K/uL; LYMPHOCYTES 23.8 % (15.0-45.0); MACROCYTES 1+; MYELOCYTES 0.4 %; PLAT.SUFFICIENCY INCREASED; POLYCHROMASIA 1+; SEG.NEUTROPHILS 68.7 % (46.0-76.0)
[2016-07-24 09:16] LABS: WHITE BLOOD COUNT 20.7 K/uL (4.1-10.2)
[2016-07-24 15:47] VITALS: BP 118/69
[2016-07-24 23:51] VITALS: BP 109/54
[2016-07-25 07:04] LABS: HEMATOCRIT 37.6 % (36.0-46.0); MCH 31.2 PG (29.0-34.0); MCHC 31.9 G/DL (30.0-36.0); MCV 97.7 FL (83-99); MEAN PLAT.VOLUME 9.2 uM^3 (9.5-12.4); NRBC (%) 0.1 /100 WBC (0-0); PLATELET COUNT 580 K/uL (156-360); RBC DIS.WIDTH-CV 17.2 % (11.8-14.6); RBC DIS.WIDTH-SD 61.1 % (39-53); RED BLOOD COUNT 3.85 M/uL (3.80-5.20); WHITE BLOOD COUNT 21.4 K/uL (4.1-10.2)
[2016-07-25 07:42] LABS: ANION GAP 11 MEQ/L (2-14); CHLORIDE 99 MEQ/L (99-109); GFR ESTIMATE (CALCULATED) > 59 mL/min/; GLUCOSE 87 mg/dL (70-99); MAGNESIUM 1.6 mg/dl (1.3-2.7); SAMPLE HEMOLYSIS CHECK 0; SAMPLE ICTERIC CHECK 0; SAMPLE LIPEMIA CHECK 0; SODIUM 136 MEQ/L (136-147); UREA NITROGEN (BUN) 7 mg/dL (9-23)
[2016-07-25 07:43] LABS: POTASSIUM 3.3 MEQ/L (3.7-5.4)
[2016-07-25 07:48] VITALS: BP 112/72
[2016-07-25 07:54] LABS: ANISOCYTOSIS 1+; ATYPICAL LYMPHOCYTE 3.5 %; EOSINOPHIL ABS CT 0.2; EOSINOPHILS 0.9 % (0-5.0); LYMPHOCYTES 18.4 % (15.0-45.0); MACROCYTES 1+; METAMYELOCYTES 0.9 %; PLAT.SUFFICIENCY INCREASED; SEG.NEUTROPHILS 70.2 % (46.0-76.0)
[2016-07-25 15:27] VITALS: BP 124/83
[2016-07-25 23:58] VITALS: BP 135/77
[2016-07-26 06:50] LABS: HEMATOCRIT 38.5 % (36.0-46.0); MCH 30.9 PG (29.0-34.0); MCHC 31.4 G/DL (30.0-36.0); MCV 98.5 FL (83-99); MEAN PLAT.VOLUME 9.2 uM^3 (9.5-12.4); NRBC (%) 0.2 /100 WBC (0-0); PLATELET COUNT 522 K/uL (156-360); RBC DIS.WIDTH-CV 17.2 % (11.8-14.6); RBC DIS.WIDTH-SD 62.3 % (39-53); RED BLOOD COUNT 3.91 M/uL (3.80-5.20); WHITE BLOOD COUNT 21.9 K/uL (4.1-10.2)
[2016-07-26 07:20] LABS: ANION GAP 11 MEQ/L (2-14); CHLORIDE 99 MEQ/L (99-109); GFR ESTIMATE (CALCULATED) > 59 mL/min/; GLUCOSE 73 mg/dL (70-99); MAGNESIUM 1.7 mg/dl (1.3-2.7); POTASSIUM 4.2 MEQ/L (3.7-5.4); SAMPLE HEMOLYSIS CHECK 0; SAMPLE ICTERIC CHECK 0; SAMPLE LIPEMIA CHECK 0; SODIUM 137 MEQ/L (136-147); UREA NITROGEN (BUN) 8 mg/dL (9-23)
[2016-07-26 07:46] VITALS: BP 152/82
[2016-07-26 08:45] LABS: METAMYELOCYTES 0.5 %; MYELOCYTES 0.5 %; PLAT.SUFFICIENCY ADEQUATE; SEG.NEUTROPHILS 64.5 % (46.0-76.0)
[2016-07-26 11:33] VITALS: BP 114/62
[2016-07-26] MEDS ORDERED: NICOTINE PATCH1 EAC2 TD (13:08)
[2016-07-26] MEDS ORDERED: QUETIAPINE FUM200 MG PO (13:09)
[2016-07-26] MEDS ORDERED: PREDNISONE20 MG PO (13:10)
[2016-07-26] MEDS ORDERED: DOCU LIQUI50 MG/5 ML PO (13:10)
[2016-07-26] MEDS ORDERED: CLONAZEPAM0.5 MG PO (13:13)
== END 2016-07-26 16:25 | DRG 207 ==
LOC: EME 16:15 → EDOF 20:53 → 4WEST 20:53 → 4EAST 07-20 19:34 → 5SOUTH 07-22 21:37
PROVIDERS: Anesthesiology; Emergency Medicine; Internal Medicine; Internal Medicine Critical Care Medicine; Internal Medicine Nephrology; Student in an Organized Health Care Education/Training Program
DX: J96.01 Acute respiratory failure with hypoxia (principal); J69.0 Pneumonitis due to inhalation of food and vomit; J44.1 Chronic obstructive pulmonary disease with (acute) exacerbation; E87.2 Acidosis; E87.1 Hypo-osmolality and hyponatremia; I50.31 Acute diastolic (congestive) heart failure; R57.9 Shock, unspecified; F32.9 Major depressive disorder, single episode, unspecified; F25.9 Schizoaffective disorder, unspecified; F41.9 Anxiety disorder, unspecified; E87.6 Hypokalemia; E83.51 Hypocalcemia; D64.9 Anemia, unspecified; E78.5 Hyperlipidemia, unspecified; G40.909 Epilepsy, unspecified, not intractable, without status epilepticus; F17.200 Nicotine dependence, unspecified, uncomplicated; Z88.1 Allergy status to other antibiotic agents; Z88.5 Allergy status to narcotic agent; Z23 Encounter for immunization
CPT/HCPCS: 36600; 71010; 71275; 80048; 80053; 80061; 80076; 80202; 81003; 82803; 82948; 83010 90; 83605; 83615; 83735; 83880; 84100; 84145 90; 84439; 84443; 84481; 84484; 84702; 85025; 85027; 85379; 86738 90; 86850; 86880; 86900; 86901; 86920; 87040; 87070; 87086; 87102; 87205; 87278; 87502; 87641; 92526 GN; 92610 GN; 93005; 93306; 94002; 94003; 94640; 94640 76; 94644; 94668; 94760; 94799; 97530 GO; 97530 GP; 99202; 99281; 99285; C9113; J0456; J0610; J1100; J1120; J1170; J1630; J1650; J1815; J1940; J1956; J2250; J2543; J2704; J2920; J2930; J3010; J3370; J3475; J3480; J7030; J7050; J7120; J7512; J7644; P9016

== ENCOUNTER → 2016-08-24 | Outpatient (CLI) | payer OTHER ==
[~2016-08-24] MED LIST changes: +DOCU LIQUI50 MG/5 ML PO; +PREDNISONE20 MG PO; +QUETIAPINE FUM200 MG PO
== END | disposition home or self-care (01) ==
LOC: RES 08:40
DX: J98.4 Other disorders of lung (principal)
CPT/HCPCS: 94060; 94726; 94729

== ENCOUNTER 2017-03-04 17:08 | Emergency (ER) | payer OTHER ==
[~2017-03-04] VITALS: Ht 160 cm; Wt 86.4 kg
[2017-03-04] MEDS ORDERED: MOTRIN600 MG PO (18:57)
[2017-03-04 19:49] VITALS: BP 117/87
== END 2017-03-04 19:50 | disposition home or self-care (01) ==
LOC: EME 17:08
DX: M25.461 Effusion, right knee (principal); S80.211A Abrasion, right knee, initial encounter; F17.200 Nicotine dependence, unspecified, uncomplicated; F20.9 Schizophrenia, unspecified; F32.9 Major depressive disorder, single episode, unspecified; Z87.19 Personal history of other diseases of the digestive system; F19.11 Other psychoactive substance abuse, in remission; Z86.69 Personal history of other diseases of the nervous system and sense organs; W18.30XA Fall on same level, unspecified, initial encounter; Y93.9 Activity, unspecified; Y92.9 Unspecified place or not applicable
CPT/HCPCS: 73564; 99281; 99283

== ENCOUNTER 2017-05-11 12:15 | Inpatient (IN) | payer OTHER ==
[~2017-05-11] VITALS: Ht 160 cm; Wt 85.6 kg
[~2017-05-11 12:15] MED LIST changes: +MOTRIN600 MG PO
[2017-05-11] MEDS ORDERED: BENZTROPINE MESY1 MG PO (13:30)
[2017-05-11] MEDS ORDERED: SERTRALINE HCL50 MG PO (13:31)
[2017-05-11] MEDS ORDERED: KLONOPIN0.5 M1 PO (13:31)
[2017-05-11 14:34] LABS: HEMATOCRIT 41.9 % (36.0-46.0); HEMOGLOBIN 15.1 G/DL (11.9-15.5); MCH 32.8 PG (29.0-34.0); PLATELET COUNT 345 K/uL (156-360); RBC DIS.WIDTH-CV 13.1 % (11.8-14.6); RBC DIS.WIDTH-SD 43.4 % (39-53); RED BLOOD COUNT 4.61 M/uL (3.80-5.20); WHITE BLOOD COUNT 17.3 K/uL (4.1-10.2)
[2017-05-11 14:35] LABS: MCV 90.9 FL (83-99)
[2017-05-11 14:39] LABS: AMPHETAMINE NEGATIVE (500 ng/mL); BARBITURATES NEGATIVE (200 ng/mL); BENZODIAZEPINES NEGATIVE (150 ng/mL); BUPRENORPHINE NEGATIVE (10 ng/mL); COCAINE NEGATIVE (150 ng/mL); METHADONE NEGATIVE (200 ng/mL); METHAMPHETAMINE NEGATIVE (500 ng/mL); OPIATES (MORPHINE) NEGATIVE (100 ng/mL); OXYCODONE NEGATIVE (100 ng/mL); PHENCYCLIDINE NEGATIVE (25 ng/mL); PROPOXYPHENE NEGATIVE (300 ng/mL); THC CANNABINOIDS NEGATIVE (50 ng/mL); TRICYCLIC ANTIDEPRESSANTS NEGATIVE (300 ng/mL)
[2017-05-11 14:46] LABS: ALBUMIN 4.3 g/dL (3.2-4.8)
[2017-05-11 14:47] LABS: CHLORIDE 88 mEq/L (99-109); POTASSIUM 4.3 mEq/L (3.7-5.4); SODIUM 120 mEq/L (136-147)
[2017-05-11 14:49] LABS: GLUCOSE 99 mg/dL (70-99); TOTAL PROTEIN 7.7 g/dL (6.4-8.3)
[2017-05-11 14:51] LABS: TOTAL BILIRUBIN 0.4 mg/dL (0.0-1.0)
[2017-05-11 14:52] LABS: ALKALINE PHOSPHATASE 89 IU/L (3-129); SERUM ETHYL ALCOHOL < 10 mg/dL
[2017-05-11 14:53] LABS: CREATININE 0.6 mg/dL (0.6-1.3); GFR ESTIMATE (CALCULATED) > 59 mL/min/
[2017-05-11 14:54] LABS: AST (GOT) 50 IU/L (2-34); UREA NITROGEN (BUN) 3 mg/dL (9-23)
[2017-05-11 14:56] LABS: ALT (GPT) 42 IU/L (3-49)
[2017-05-11 17:04] LABS: THYROTROPIN (TSH) 0.97 MIU/L (0.4-5.5)
[2017-05-11 20:27] VITALS: BP 152/88
[2017-05-11 21:37] LABS: APPEARANCE CLEAR ((CLEAR)); BILIRUBIN NEGATIVE; BLOOD NEGATIVE; COLOR COLORLESS ((YELLOW)); GLUCOSE (STRIP) NEGATIVE; KETONES NEGATIVE; LEUKOCYTES NEGATIVE; NITRITE NEGATIVE; PROTEIN (STRIP) 100; SPECIFIC GRAVITY 1.003 (1.000-1.030); UROBILINOGEN 0.2 MG/DL (0.2-1.0)
[2017-05-11 21:40] LABS: BACTERIA RARE /HPF; EPITHELIAL CELLS RARE /HPF; MUCUS NONE SEEN /LPF; RED BLOOD CELLS 0-5 /HPF (0-5); WHITE BLOOD CELLS 0-5 /HPF (0-5)
[2017-05-11] MEDS ORDERED: KEPPRA500 MG PO (23:15)
[2017-05-11 23:28] VITALS: BP 119/68
[2017-05-12 04:05] VITALS: BP 108/63
[2017-05-12 06:54] LABS: CHLORIDE 100 MEQ/L (99-109); CREATININE 0.4 MG/DL (0.6-1.3); GFR ESTIMATE (CALCULATED) > 59 mL/min/; GLUCOSE 118 mg/dL (70-99); SODIUM 135 MEQ/L (136-147); UREA NITROGEN (BUN) 4 mg/dL (9-23)
[2017-05-12 07:30] VITALS: BP 103/61
[2017-05-12 12:04] VITALS: BP 99/58
[2017-05-12] MEDS ORDERED: BREO ELLIPTA I1 EACH AEROSOL (13:08)
[2017-05-12] MEDS ORDERED: VENTOLIN HFA18 GM AEROSOL (13:10)
[2017-05-12 19:40] VITALS: BP 131/84
[2017-05-13] VITALS (7 sets, daily range): BP systolic 111–156; BP diastolic 71–92
[2017-05-13 07:01] LABS: CHLORIDE 99 MEQ/L (99-109); CREATININE 0.4 MG/DL (0.6-1.3); GFR ESTIMATE (CALCULATED) > 59 mL/min/; GLUCOSE 91 mg/dL (70-99); POTASSIUM 4.1 MEQ/L (3.7-5.4); SODIUM 132 MEQ/L (136-147); UREA NITROGEN (BUN) 5 mg/dL (9-23)
[2017-05-13 07:04] LABS: BASOPHIL (%) 0.8 % (0-1); BASOPHIL COUNT 0.1 K/uL (0-0.1); EOSINOPHIL COUNT 0.2 K/uL (0-0.3); HEMOGLOBIN 13.9 G/DL (11.9-15.5); IMMATURE GRANULOCYTE (%) 0.6 % (0.0-0.7); LYMPHOCYTE (%) 30.1 % (15-42); LYMPHOCYTE COUNT 2.9 K/uL (1.0-2.8); MCH 32.2 PG (29.0-34.0); MCHC 33.9 G/DL (30.0-36.0); MONOCYTE (%) 8.4 % (3-12); MONOCYTE COUNT 0.8 K/uL (0-0.8); NEUTROPHIL (%) 58.1 % (45-76); NEUTROPHIL COUNT 5.6 K/uL (1.8-6.4); PLATELET COUNT 326 K/uL (156-360); RBC DIS.WIDTH-CV 13.9 % (11.8-14.6); RBC DIS.WIDTH-SD 48.9 % (39-53); RED BLOOD COUNT 4.32 M/uL (3.80-5.20); WHITE BLOOD COUNT 9.6 K/uL (4.1-10.2)
[2017-05-13 07:07] LABS: MCV 94.9 FL (83-99)
[2017-05-14 00:14] VITALS: BP 123/73
[2017-05-14 04:00] VITALS: BP 133/74
[2017-05-14 06:49] LABS: CHLORIDE 103 MEQ/L (99-109); CREATININE 0.5 MG/DL (0.6-1.3); GFR ESTIMATE (CALCULATED) > 59 mL/min/; GLUCOSE 82 mg/dL (70-99); POTASSIUM 4.5 MEQ/L (3.7-5.4); SODIUM 136 MEQ/L (136-147); UREA NITROGEN (BUN) 4 mg/dL (9-23)
[2017-05-14 07:32] VITALS: BP 124/71
[2017-05-14 14:55] LABS: C DIFF TOXIN NEGATIVE (NEGATIVE)
[2017-05-14 16:08] VITALS: BP 116/68
[2017-05-15] VITALS: BP 109/61
[2017-05-15 06:33] LABS: BASOPHIL (%) 0.9 % (0-1); BASOPHIL COUNT 0.1 K/uL (0-0.1); EOSINOPHIL (%) 2.2 % (0-5); EOSINOPHIL COUNT 0.2 K/uL (0-0.3); HEMOGLOBIN 13.6 G/DL (11.9-15.5); IMMATURE GRANULOCYTE (%) 0.4 % (0.0-0.7); LYMPHOCYTE (%) 33.9 % (15-42); LYMPHOCYTE COUNT 3.4 K/uL (1.0-2.8); MCH 32.4 PG (29.0-34.0); MCHC 33.2 G/DL (30.0-36.0); MCV 97.6 FL (83-99); MONOCYTE (%) 7.3 % (3-12); MONOCYTE COUNT 0.7 K/uL (0-0.8); NEUTROPHIL (%) 55.3 % (45-76); NEUTROPHIL COUNT 5.6 K/uL (1.8-6.4); PLATELET COUNT 314 K/uL (156-360); RBC DIS.WIDTH-CV 13.8 % (11.8-14.6); RBC DIS.WIDTH-SD 49.5 % (39-53); WHITE BLOOD COUNT 10.1 K/uL (4.1-10.2)
[2017-05-15 07:07] LABS: CHLORIDE 102 MEQ/L (99-109); CREATININE 0.5 MG/DL (0.6-1.3); GFR ESTIMATE (CALCULATED) > 59 mL/min/; GLUCOSE 80 mg/dL (70-99); POTASSIUM 4.3 MEQ/L (3.7-5.4); SODIUM 136 MEQ/L (136-147); UREA NITROGEN (BUN) 6 mg/dL (9-23)
[2017-05-15 07:45] VITALS: BP 118/73
[2017-05-15] MEDS ORDERED: ATARAX,VISTARIL25 MG PO (17:03)
== END 2017-05-15 16:29 | DRG 641 ==
LOC: EME 12:15 → 5SOUTH 15:40 → EDOF 15:40 → ENRESERV 15:43 → 5SOUTH 19:57
PROVIDERS: Emergency Medicine; Internal Medicine; Student in an Organized Health Care Education/Training Program
DX: E87.1 Hypo-osmolality and hyponatremia (principal); F32.3 Major depressive disorder, single episode, severe with psychotic features; R45.851 Suicidal ideations; F45.8 Other somatoform disorders; R63.1 Polydipsia; F41.9 Anxiety disorder, unspecified; R19.7 Diarrhea, unspecified; G40.909 Epilepsy, unspecified, not intractable, without status epilepticus; F17.200 Nicotine dependence, unspecified, uncomplicated; Z23 Encounter for immunization
CPT/HCPCS: 71046; 80048; 80053; 81003; 82533 91; 83930; 83935; 84300; 84443; 84702; 85025; 85027; 87086; 87493; 87506; 90686; 94640; 94640 76; 99281; 99285; G0480; J1650; J7030; Q0177

== ENCOUNTER 2017-05-15 10:53 | Inpatient (IN) | payer OTHER ==
[~2017-05-15] VITALS: Ht 160 cm; Wt 86.8 kg
[~2017-05-15 10:53] MED LIST changes: +BREO ELLIPTA I1 EACH AEROSOL; +KLONOPIN0.5 M1 PO; +SERTRALINE HCL50 MG PO; +VENTOLIN HFA18 GM AEROSOL
[2017-05-15 16:40] VITALS: BP 122/75
[2017-05-15] MEDS ORDERED: ATARAX,VISTARIL25 MG PO (17:03)
[2017-05-16 07:39] VITALS: BP 107/62
[2017-05-16 15:24] VITALS: BP 98/59
[2017-05-17 07:50] VITALS: BP 128/78
[2017-05-17 08:02] LABS: CHLORIDE 103 MEQ/L (99-109); CREATININE 0.5 MG/DL (0.6-1.3); GFR ESTIMATE (CALCULATED) > 59 mL/min/; GLUCOSE 92 mg/dL (70-99); POTASSIUM 4.5 MEQ/L (3.7-5.4); SODIUM 137 MEQ/L (136-147); UREA NITROGEN (BUN) 7 mg/dL (9-23)
[2017-05-17 15:36] VITALS: BP 103/63
[2017-05-18 07:40] VITALS: BP 105/62
[2017-05-18] MEDS ORDERED: HALDOL DEC100 MG/1 M IM (10:26)
[2017-05-18] MEDS ORDERED: KLONOPIN1 MG PO (10:27)
[2017-05-18 15:35] VITALS: BP 124/79
[2017-05-19 07:39] VITALS: BP 92/55
[2017-05-19 07:53] LABS: CHLORIDE 102 MEQ/L (99-109); CREATININE 0.5 MG/DL (0.6-1.3); GFR ESTIMATE (CALCULATED) > 59 mL/min/; GLUCOSE 93 mg/dL (70-99); POTASSIUM 4.7 MEQ/L (3.7-5.4); SODIUM 136 MEQ/L (136-147); UREA NITROGEN (BUN) 7 mg/dL (9-23)
[2017-05-19] MEDS ORDERED: CYANOCOBALAM1000 MCG PO (08:50)
[2017-05-19] MEDS ORDERED: ARIPIPRAZOLE10 MG PO (08:50)
[2017-05-19] MEDS ORDERED: HALDOL DEC100 MG/1 M IM (08:50)
[2017-05-19] MEDS ORDERED: ERGOCALCIF50000 UNIT PO (08:50)
[2017-05-19] MEDS ORDERED: CLONAZEPAM0.5 MG PO (08:50)
[2017-05-19] MEDS ORDERED: SERTRALINE HCL100 MG PO (08:50)
== END 2017-05-19 11:37 | disposition home or self-care (01) | DRG 885 ==
LOC: 1WEST 10:53 → ENRESERV 15:43 → 1WEST 16:39
PROVIDERS: Psychiatry & Neurology Psychiatry
DX: F25.1 Schizoaffective disorder, depressive type (principal); F45.8 Other somatoform disorders; R63.1 Polydipsia; R45.851 Suicidal ideations; R56.9 Unspecified convulsions; F41.9 Anxiety disorder, unspecified; Z91.14 Patient's other noncompliance with medication regimen
CPT/HCPCS: 80048; 82306; 94640; 94640 76; 97150 GO; 97165 GO; 99202; J1631; Q0177